=== PATIENT | male | born 1995 | race Two or more races ===

== ENCOUNTER 2019-09-16 19:57 | Emergency (ER) | payer MEDICAID ==
[~2019-09-16] VITALS: Ht 165.1 cm; Wt 71.0 kg
[2019-09-16] MEDS ORDERED: IBUPROFEN 600MG TABLET PO ONE (21:45)
[2019-09-16] MEDS ORDERED: FLUORESCEIN SODIUM 1MG/STRIP RIGHTEYE ONE (21:45)
[2019-09-16] MEDS ORDERED: TETRACAINE 0.5% OPHTH DROPS 4ML RIGHTEYE ONE (21:45)
[2019-09-16 23:41] VITALS: BP 120/64
== END 2019-09-16 23:42 | disposition home or self-care (01) ==
LOC: ER 19:57
DX: H16.002 Unspecified corneal ulcer, left eye (principal)
CPT/HCPCS: 99283

== ENCOUNTER 2020-07-23 12:40 | Emergency (ER) | payer SELFPAY ==
[~2020-07-23] VITALS: Ht 165.1 cm; Wt 82.0 kg
[2020-07-23] MEDS ORDERED: FLUORESCEIN SODIUM 1MG/STRIP RIGHTEYE ONE (14:00)
[2020-07-23] MEDS ORDERED: TETRACAINE 0.5% OPHTH DROPS 4ML RIGHTEYE ONE (14:00)
[2020-07-23 15:46] VITALS: BP 130/82
== END 2020-07-23 16:10 | disposition home or self-care (01) ==
LOC: ER 12:40
DX: H53.8 Other visual disturbances (principal)
CPT/HCPCS: 99283